=== PATIENT | female | born 1990 | race Caucasian/White ===

== ENCOUNTER → 2020-10-14 10:39 | Outpatient (BNVA) | payer MEDICAID, SELFPAY | PROVIDERS: Visit Provider Nurse Practitioner Family | DX: Z20.822 Contact with and (suspected) exposure to COVID-19 (principal); J06.9 Acute upper respiratory infection, unspecified | CPT/HCPCS: 87635 ==

== ENCOUNTER 2020-10-17 13:00 | Outpatient (CLI) | payer MEDICAID, SELFPAY ==
[2020-10-17 13:00] VITALS: BP 105/67; PULSE 81; RESP 16; TEMP 36.8; O2SAT 97
[2020-10-17 14:21] VITALS: BP 104/66; PULSE 78; RESP 16; TEMP 37.1; O2SAT 98
--- NOTE | 2020-10-27 14:56 | DCPLANNER ---
title manager had message that patient received the monoclonal antibody infusion. title manager called patient to check on patient after receiving the infusion. title manager called phone number [phone], unable to speak with patient at this time.
== END 2020-10-17 13:01 ==
LOC: OPS 07-26 11:15
PROVIDERS: Visit Provider Nurse Practitioner Family
DX: U07.1 COVID-19 (principal)
CPT/HCPCS: 96365